=== PATIENT | male | born 1990 | race Hispanic/Latino ===

== ENCOUNTER 2022-06-24 18:37 | Emergency (ER) | payer OTHER, SELFPAY ==
--- OUTSIDE RECORDS SUMMARY | 2022-06-24 18:41 | XMS REPORT | Continuity of Care Document ---
:1990 Author Organization [facility] t Address [address] [place] [address] Care Team Providers Name Role Phone AMBREEN_STELLAA Attending Clinician Unavailable [email or web address] Attending Clinician Unavailable ERUM_STELLAA Admitting Clinician Unavailable [email or web address]_beti Admitting Clinician Unavailable Payers Payer Name Policy Type Policy Number Effective Date Expiration Date S ource Problems Condition Condition Condition Status Onset Resolution Last Treating Co mments Source Name Details Category Date Date Treatment Clinician Date Asthma Asthma Problem Active [place] [facility]12 [facility] 00:[facility]: [facility] Allergies, Adverse Reactions, Alerts This patient has no known allergies or adverse reactions. Social History Smoking Status Start Date Stop Date Source Smoker, Current Status Unknown [place] [facility] Medications This patient has no known medications. Immunizations Ordered Immunization Filled Immunization Date Status Commen ts Source Name Name Tdap Tdap 2016-06-18 Completed [facility] Procedures Procedure Date / Time Performed Performing Clinician Sourc e Appendectomy [facility] Plan of Care Planned Activity Planned Date Details Comments Source Diagnostic Test 2020-01-28 COVID-19 RNA [facility] Pending 00:00:00 (SARS-CoV-2), QL, [facility] iron assorter-PCR, respiratory Outreac [facility] Program specimen [code = COVID-19 RNA (SARS-CoV-2), QL, iron assorter-PCR, respiratory specimen] Encounters Start End Encounter Admission Attending Care Care Encounter Source Date/Time Date/Time Type Type Clinicians Facility Department ID 2020-01-28 2020-01-28 Outpatient [facility] [id number] [place] 09:07:00 09:07:00 JAN [id number] [facility] 2020-01-28 2020-01-28 [facility] [place] - [id number] [place] 00:00:00 00:00:00 Saeed Pacheco MD: [id number] [facility] [place] [place] [id number] h , Ph. Program 2019-09-23 2019-09-23 Outpatient donavan ANDERSON MM [id number] [place] 11:36:00 11:36:00 [id number] Results This patient has no known results.
[2022-06-24] MEDS ORDERED: ONDANSETRON 4 MG (ODT) TAB ONE (19:45)
[2022-06-24 20:29] LABS: SARS-COV-2 RT PCR NEGATIVE (NEGATIVE)
--- NOTE | 2022-06-24 20:45 | ER ---
Nurse's Notes [facility] Name: Gabe Robison Jr Age: 32 yrs Sex: Male : 1990 Arrival Date: 06/24/2022 Time: 18:38 Bed IW1 Private MD: Diagnosis: Nausea Presentation: 06/24 19:38 Chief complaint: Patient states: I woke up with nausea and abdominal pain today. aa9 Coronavirus screen: Vaccine status: Patient reports being unvaccinated. Ebola Screen: No symptoms or risks identified at this time. Initial Sepsis Screen: Does the patient meet any 2 criteria? No. Patient's initial sepsis screen is negative. Does the patient have a suspected source of infection? No. Patient's initial sepsis screen is negative. Risk Assessment: Do you want to hurt yourself or someone else? Patient reports no desire to harm self or others. Onset of symptoms was June 24, 2022. 19:38 Method Of Arrival: Ambulatory aa9 19:38 Acuity: ESTELLE 4 aa9 Triage Assessment: 19:40 General: Appears in no apparent distress. comfortable, Behavior is calm, cooperative, aa9 appropriate for age. Pain: Denies pain. Neuro: Level of Consciousness is awake, alert, obeys commands, Oriented to person, place, time, situation. Cardiovascular: Patient's skin is warm and dry. Respiratory: Airway is patent Respiratory effort is even, unlabored. GI: Reports nausea. Historical: - Allergies: 19:39 No Known Allergies; aa9 - Home Meds: 19:39 None [Active]; aa9 - PMHx: 19:39 Asthma; aa9 - Immunization history:: Client reports having NOT received the Covid vaccine. - Social history:: Smoking status: Reported history of juuling and/or vaping. Screenin:11 [facility] ED Fall Risk Assessment (Adult) History of falling in the last 3 months, aa9 including since admission No falls in past 3 months (0 pts) Confusion or Disorientation No (0 pts) Intoxicated or Sedated No (0 pts) Impaired Gait No (0 pts) Mobility Assist Device Used No (0 pt) Altered Elimination No (0 pt) Score/Fall Risk Level 0 - 2 = Low Risk. Abuse screen: Denies threats or abuse. Denies injuries from another. Nutritional screening: No deficits noted. Tuberculosis screening: No symptoms or risk factors identified. Vital Signs: 19:38 BP 126 / 84; Pulse 77; Resp 19 S; Temp 98(O); Pulse Ox 100% on R/A; Weight 94.35 kg aa9 (R); Height 5 ft. 7 in. (170.18 cm) (R); Pain 0/10; 19:38 Body Mass Index 32.58 (94.35 kg, 170.18 cm) aa9 ED Course: 18:38 Patient arrived in ED. as 18:50 Nell Brown FNP-C is [facility]. kb 18:50 Franko Chu MD is Attending Physician. kb 19:39 Triage completed. aa9 19:40 Arm band placed on. aa9 19:44 Elisa Melgar MD is Attending Physician. kb 21:11 Patient has correct armband on for positive identification. aa9 21:11 Patient did not have IV access during this emergency room visit. aa9 21:11 No provider procedures requiring assistance completed. aa9 Administered Medications: 19:43 Drug: Zofran (Ondansetron) 4 mg Route: PO; aa9 20:21 Follow up: Response: No adverse reaction aa9 Medication: 21:11 VIS not applicable for this client. aa9 Outcome: 20:45 Discharge ordered by . kb 21:11 Discharged to home ambulatory. aa9 21:11 Condition: stable 21:11 Discharge instructions given to patient, Instructed on discharge instructions, follow up and referral plans. Demonstrated understanding of instructions, follow-up care. 21:11 Patient left the ED. aa9 Signatures: Nell Brown FNP-C FNP-Janell Leonardo Aylin, RN RN aa9
--- NOTE | 2022-06-24 20:45 | EDPHYS ---
Physician Documentation [facility] Name: Gabe Robison Jr Age: 32 yrs Sex: Male : 1990 Arrival Date: 06/24/2022 Time: 18:38 Bed IW1 Private MD: ED Physician Elisa Melgar HPI: 06/24 20:57 This 32 yrs old Male presents to ER via Ambulatory with complaints of Nausea, kb Dizziness. 20:57 The patient presents to the emergency department with nausea. Onset: The kb symptoms/episode began/occurred 1 hour(s) ago. Possible causes: unknown. The symptoms are aggravated by nothing. The symptoms are alleviated by nothing. Associated signs and symptoms: Pertinent positives: nausea, fatigue, malaise. Severity of symptoms: At their worst the symptoms were mild in the emergency department the symptoms are unchanged. The patient has not experienced similar symptoms in the past. The patient has not recently seen a physician. 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 "I was on my way to work and didn't think I could work like this so my boss told me to come in.". Historical: - Allergies: 19:39 No Known Allergies; aa9 - Home Meds: 19:39 None [Active]; aa9 - PMHx: 19:39 Asthma; aa9 - Immunization history:: Client reports having NOT received the Covid vaccine. - Social history:: Smoking status: Reported history of juuling and/or vaping. ROS: 20:59 Respiratory: Negative for shortness of breath, cough, wheezing, and pleuritic chest kb pain. 20:59 Constitutional: Positive for fatigue, malaise. 20:59 Abdomen/GI: Positive for nausea, Negative for abdominal pain, vomiting, diarrhea. 20:59 All other systems are negative. Exam: 20:59 Constitutional: This is a well developed, well nourished patient who is awake, alert, kb and in no acute distress. Head/Face: Normocephalic, atraumatic. ENT: Moist Mucous membranes Cardiovascular: Regular rate and rhythm with a normal S1 and S2. No gallops, murmurs, or rubs. No pulse deficits. Respiratory: Respirations even and unlabored. No increased work of breathing. Talking in full sentences Abdomen/GI: Soft, non-tender. No distention Skin: Warm, dry with normal turgor. Normal color. MS/ Extremity: Pulses equal, no cyanosis. Neurovascular intact. Full, normal range of motion. Neuro: Awake and alert, GCS 15, oriented to person, place, time, and situation. Moves all extremities. Normal gait. Vital Signs: 19:38 BP 126 / 84; Pulse 77; Resp 19 S; Temp 98(O); Pulse Ox 100% on R/A; Weight 94.35 kg aa9 (R); Height 5 ft. 7 in. (170.18 cm) (R); Pain 0/10; 19:38 Body Mass Index 32.58 (94.35 kg, 170.18 cm) aa9 MDM: 19:39 Patient medically screened. kb 20:57 Data reviewed: vital signs, nurses notes. Data interpreted: Pulse oximetry: on room air kb is 100 %. Interpretation: normal. 21:00 Differential diagnosis: viral gastroenteritis, gastroenteritis, viral syndrome. kb Counseling: I had a detailed discussion with the patient and/or guardian regarding: the historical points, exam findings, and any diagnostic results supporting the discharge/admit diagnosis, lab results, the need for outpatient follow up, a family practitioner, to return to the emergency department if symptoms worsen or persist or if there are any questions or concerns that arise at home. ED course: Diagnostic test considered but not performed: Considered CBC, CMP, lipase and abdominal ultrasound but patient has no pain, fever. Decided not to do further studies using shared decision making History obtained from: Patient. 06/24 19:39 Order name: COVID-19/FLU A+B; Complete Time: 20:35 kb Administered Medications: 19:43 Drug: Zofran (Ondansetron) 4 mg Route: PO; aa9 20:21 Follow up: Response: No adverse reaction aa9 Disposition Summary: 06/24/22 20:45 Discharge Ordered Location: Home Condition: Stable kb Diagnosis - Nausea kb Followup: kb - With: Private Physician - When: 2 - 3 days - Reason: Recheck today's complaints, Continuance of care, Re-evaluation by your physician Followup: kb - With: Emergency Department - When: As needed - Reason: Worsening of condition Discharge Instructions: - Discharge Summary Sheet kb - Nausea, Adult, [id number] kb Forms: - Medication Reconciliation Form kb - Thank You Letter kb - Antibiotic Education kb - Work release form kb - Prescription Opioid Use kb Signatures: Dispatcher [employer] Nell Velasquez, Yajaira Seaman, RN RN aa9
[2022-06-24 22:01] VITALS: BP 126/84; TEMP 98; O2SAT 100
== END 2022-06-24 21:11 | disposition home or self-care (01) ==
LOC: ER 18:37
DX: R11.0 Nausea (principal); Z20.822 Contact with and (suspected) exposure to COVID-19
CPT/HCPCS: 0240U; 99283; Q0162

== ENCOUNTER 2022-07-05 19:08 | Emergency (ER) | payer OTHER ==
--- OUTSIDE RECORDS SUMMARY | 2022-07-05 19:11 | XMS REPORT | Continuity of Care Document ---
:1990 Author Organization [facility] t Address [address] [place] [address] Care Team Providers Name Role Phone LAKHWINDERREEN_ALISON Attending Clinician Unavailable [email or web address] Attending Clinician Unavailable LAKHWINDERREEN_STELLAA Admitting Clinician Unavailable charlee_beti Admitting Clinician Unavailable Payers Payer Name Policy Type Policy Number Effective Date Expiration Date S ource Problems Condition Condition Condition Status Onset Resolution Last Treating Co mments Source Name Details Category Date Date Treatment Clinician Date Asthma Asthma Problem Active [place] 8-12 da 00:[facility]: [facility] Allergies, Adverse Reactions, Alerts This patient has no known allergies or adverse reactions. Social History Smoking Status Start Date Stop Date Source Smoker, Current Status Unknown [place] [facility] Medications This patient has no known medications. Immunizations Ordered Immunization Filled Immunization Date Status Commen ts Source Name Name Tdap Tdap 2016-06-18 Completed [facility] 00:00:00 [facility] Procedures Procedure Date / Time Performed Performing Clinician [facility]our[facility] e [facility] Plan of Care Planned Activity Planned Date Details Comments Source Diagnostic Test 2020-01-28 COVID-19 RNA [facility] Pending 00:00:00 (SARS-CoV-2), QL, [facility] accounts receivable associate-PCR, respiratory Outreac [facility] Program specimen [code = COVID-19 RNA (SARS-CoV-2), QL, accounts receivable associate-PCR, respiratory specimen] Encounters Start End Encounter Admission Attending Care Care Encounter Source Date/Time Date/Time Type Type Clinicians Facility Department ID 2020-01-28 2020-01-28 Outpatient [facility] [id number] [place] 09:07:00 09:07:00 JAN [id number] [facility] 2020-01-28 2020-01-28 [place] - [id number] [place] 00:00:00 00:00:00 Saeed Pacheco MD: [address] [facility], [place], [place] [id number] h , Ph. Program 2019-09-23 2019-09-23 Outpatient donavan ANDERSON MM [id number] [place] 11:36:00 11:36:00 0407 [facility] Results This patient has no known results.
[2022-07-05] MEDS ORDERED: NA CHLORIDE 0.9% 1,000 ML ONE (20:18)
[2022-07-05] MEDS ORDERED: FAMOTIDINE 20 MG/2 ML VIAL IV ONE (20:19)
[2022-07-05 20:25] LABS: Absolute Lymphocytes (CBC) 1.6 K/uL (0.7-4.9); Hematocrit 44.2 % (39.6-49.0); Lymphocytes % 9.8 % (15.3-44.8); MCV 90.6 fL (80-100); MPV 7.8 fL (7.6-11.3); RBC Red Blood Cell Count 4.88 M/uL (4.33-5.43)
[2022-07-05 20:38] LABS: Albumin 3.5 g/dL (3.4-5.0); Bilirubin Total 0.4 mg/dL (0.2-1.0); Protein, Total 7.7 g/dL (6.4-8.2)
--- NOTE | 2022-07-05 21:32 | RAD REPORT ---
EXAM DESCRIPTION: CT - Abdomen Pelvis W Contrast - 07/05/2022 9:18 pm CLINICAL HISTORY: Abdominal pain COMPARISON: none. TECHNIQUE: Computed axial tomography of the abdomen pelvis was obtained. 100 cc Isovue-300 was admin istered intravenously. Oral contrast was not requested which limits evaluation of bowel and appendix All CT scans are performed using dose optimization technique as appropriate and may include automated exposure control or mA/KV adjustment according to patient size. FINDINGS: Fatty liver Spleen, pancreas, adrenal and kidneys appear unremarkable. There is no evidence of diverticulitis. Small umbilical hernia IMPRESSION: Fatty liver
[2022-07-05] MEDS ORDERED: LIDOCAINE VISCOUS 2% SOLN 15 ML UDC ONE (22:26)
[2022-07-05] MEDS ORDERED: HYDROCODONE/APAP 5/325 MG TAB ONE (22:26)
[2022-07-05] MEDS ORDERED: MAGNES/ALUMIN/SIMET 30ML UCUP ONE (22:27)
--- NOTE | 2022-07-05 23:18 | ER ---
Nurse's Notes [facility] Name: Gabe Robison Jr Age: 32 yrs Sex: Male : 1990 Arrival Date: 07/05/2022 Time: 19:12 Bed 16 Private MD: Diagnosis: Streptococcal pharyngitis;Vomiting Presentation: 07/05 19:32 Chief complaint: Patient states: I was at work today and I started having a headache kd3 and I threw up a few times. My throat has been hurting and i was feeling a bit dizzy. My symptoms started around 9 or 10 this morning. Coronavirus screen: Vaccine status: Patient reports being unvaccinated. Ebola Screen: No symptoms or risks identified at this time. Risk Assessment: Do you want to hurt yourself or someone else? Patient reports no desire to harm self or others. Onset of symptoms was July 05, 2022. 19:32 Method Of Arrival: Ambulatory kd3 19:32 Acuity: ESTELLE 4 kd3 19:37 Initial Sepsis Screen: Does the patient meet any 2 criteria? No. Patient's initial kd3 sepsis screen is negative. Does the patient have a suspected source of infection? No. Patient's initial sepsis screen is negative. Triage Assessment: 19:33 Headache History: Denies prior headaches. General: Appears in no apparent distress. kd3 Behavior is calm, cooperative. Pain: Complains of pain in head Pain currently is 7 out of 10 on a pain scale. Pain began suddenly, Also complains of nausea. Neuro: Level of Consciousness is awake, alert, obeys commands, Oriented to person, place, time, situation. Historical: - PMHx: 19:33 Asthma; kd3 - Immunization history:: Adult Immunizations up to date. - Social history:: Smoking status: Reported history of juuling and/or vaping. Screenin:45 [facility] ED Fall Risk Assessment (Adult) History of falling in the last 3 months, jb4 including since admission No falls in past 3 months (0 pts) Confusion or Disorientation No (0 pts) Intoxicated or Sedated No (0 pts) Impaired Gait No (0 pts) Mobility Assist Device Used No (0 pt) Altered Elimination No (0 pt) Score/Fall Risk Level 0 - 2 = Low Risk. Abuse screen: Denies threats or abuse. Nutritional screening: No deficits noted. Tuberculosis screening: No symptoms or risk factors identified. Assessment: 19:45 General: Appears in no apparent distress. comfortable, Behavior is calm, cooperative, jb4 appropriate for age. Pain: Complains of pain in headache Pain does not radiate. Pain currently is 7 out of 10 on a pain scale. Quality of pain is described as aching. Neuro: Level of Consciousness is awake, alert, obeys commands, Oriented to person, place, time, situation. Cardiovascular: Patient's skin is warm and dry. Respiratory: Airway is patent Respiratory effort is even, unlabored, Respiratory pattern is regular, symmetrical. GI: No signs and/or symptoms were reported involving the gastrointestinal system. : No signs and/or symptoms were reported regarding the genitourinary system. EENT: No signs and/or symptoms were reported regarding the EENT system. Derm: Skin is intact, Skin is pink, warm \T\ dry. Musculoskeletal: Circulation, motion, and sensation intact. Range of motion:. 21:00 Reassessment: Patient appears in no apparent distress at this time. Patient and/or jb4 family updated on plan of care and expected duration. Pain level reassessed. Patient is alert, oriented x 3, equal unlabored respirations, skin warm/dry/pink. 22:00 Reassessment: Patient appears in no apparent distress at this time. Patient and/or jb4 family updated on plan of care and expected duration. Pain level reassessed. Patient is alert, oriented x 3, equal unlabored respirations, skin warm/dry/pink. 23:00 Reassessment: Patient appears in no apparent distress at this time. Patient and/or jb4 family updated on plan of care and expected duration. Pain level reassessed. Patient is alert, oriented x 3, equal unlabored respirations, skin warm/dry/pink. 07/06 00:00 Reassessment: Patient appears in no apparent distress at this time. Patient and/or jb4 family updated on plan of care and expected duration. Pain level reassessed. Patient is alert, oriented x 3, equal unlabored respirations, skin warm/dry/pink. Vital Signs: 07/05 19:37 BP 115 / 81; Pulse 98; Resp 19; Temp 98.1(TE); Pulse Ox 100% ; Weight 95.25 kg; Height kd3 5 ft. 7 in. (170.18 cm); Pain 7/10; 20:45 BP 124 / 82; Pulse 88; Resp 16; Pulse Ox 100% on R/A; jb4 21:30 BP 120 / 80; Pulse 94; Resp 16; Pulse Ox 100% on R/A; jb4 22:30 BP 122 / 82; Pulse 94; Resp 18; Pulse Ox 100% on R/A; jb4 23:00 BP 118 / 74; Pulse 90; Resp 16; Pulse Ox 99% ; jb4 19:37 Body Mass Index 32.89 (95.25 kg, 170.18 cm) kd3 ED Course: 19:12 Patient arrived in ED. jj6 19:33 Triage completed. kd3 19:33 Arm band placed on. kd3 19:45 Patient has correct armband on for positive identification. Bed in low position. Call jb4 light in reach. Side rails up X 1. Client placed on continuous cardiac and pulse oximetry monitoring. NIBP monitoring applied. 19:50 Octavia Wright FNP-C is [facility]. snw 19:50 Zay Evans MD is Attending Physician. snw 20:00 Facundo Burnett RN is Primary Nurse. jb4 20:10 Inserted saline lock: 20 gauge in right antecubital area, using aseptic technique. jb4 Blood collected. 20:15 CBC with Diff Sent. jb4 20:15 CMP Sent. jb4 20:15 Lipase Sent. jb4 21:20 CT Abd/Pelvis - IV Contrast Only In Process Unspecified. EDMS 07/06 00:06 No provider procedures requiring assistance completed. IV discontinued, intact, jb4 bleeding controlled, No redness/swelling at site. Pressure dressing applied. Administered Medications: 07/05 20:28 Drug: NS 0.9% 1000 ml Route: IV; Rate: 1 bolus; Site: left antecubital; jb4 21:30 Follow up: Response: No adverse reaction; IV Status: Completed infusion; IV Intake: jb4 1000ml 20:28 Drug: Pepcid (famotidine) 20 mg Route: IVP; Site: left antecubital; jb4 21:00 Follow up: Response: No adverse reaction; Marked relief of symptoms jb4 23:50 Drug: Rocephin (cefTRIAXone) 1 grams Route: IV; Rate: calculated rate; Site: left jb4 antecubital; 07/06 00:03 Follow up: Response: No adverse reaction; IV Status: Completed infusion jb4 07/05 23:50 Drug: Decadron - Dexamethasone 10 mg Route: IVP; Site: left antecubital; jb4 07/06 00:03 Follow up: Response: No adverse reaction jb4 Intake: 07/05 21:30 IV: 1000ml; Total: 1000ml. jb4 Outcome: 23:18 Discharge ordered by MD. gonzales 07/06 00:06 Discharged to home ambulatory, with family. jb4 Condition: stable Discharge instructions given to patient, Instructed on discharge instructions, follow up and referral plans. medication usage, Demonstrated understanding of instructions, follow-up care, medications, Prescriptions given X 1. 00:06 Patient left the ED. jb4 Signatures: Dispatcher [employer] EDMS Octavia Wright, TYPEWRITER ASSEMBLER-C TYPEWRITER ASSEMBLER-Csnw Facundo Burnett, RN RN jb4 Chary Pinzon6 Elizabeth Sweeney RN RN kd3
--- NOTE | 2022-07-05 23:18 | EDPHYS ---
Physician Documentation [facility] Name: Gabe Robison Jr Age: 32 yrs Sex: Male : 1990 Arrival Date: 07/05/2022 Time: 19:12 Bed 16 Private MD: ED Physician Zay Evans HPI: 07/05 20:11 This 32 yrs old Male presents to ER via Ambulatory with complaints of snw Headache, Dizziness, Nausea/Vomiting. 20:11 The patient presents to the emergency department with nausea, vomiting. Onset: The snw symptoms/episode began/occurred acutely. Possible causes: unknown. The symptoms are aggravated by food . Associated signs and symptoms: Pertinent positives: nausea, vomiting, dizziness. Severity of symptoms: At their worst the symptoms were moderate. The patient has experienced similar episodes in the past. in this ED earlier this month with same s/s. Historical: - PMHx: 19:33 Asthma; kd3 - Immunization history:: Adult Immunizations up to date. - Social history:: Smoking status: Reported history of juuling and/or vaping. ROS: 20:07 Constitutional: Negative for fever, chills, and weight loss, Eyes: Negative for injury, snw pain, redness, and discharge, ENT: Negative for injury, pain, and discharge, Neck: Negative for injury, pain, and swelling, Cardiovascular: Negative for chest pain, palpitations, and edema, Respiratory: Negative for shortness of breath, cough, wheezing, and pleuritic chest pain, Back: Negative for injury and pain, : Negative for injury, bleeding, discharge, and swelling, MS/Extremity: Negative for injury and deformity, Skin: Negative for injury, rash, and discoloration. 20:07 Abdomen/GI: Positive for nausea and vomiting, Negative for abdominal pain. 20:07 Neuro: Positive for headache. Exam: 20:00 Constitutional: This is a well developed, well nourished patient who is awake, alert, snw and in no acute distress. Head/Face: Normocephalic, atraumatic. Eyes: Pupils equal round and reactive to light, extra-ocular motions intact. Lids and lashes normal. Conjunctiva and sclera are non-icteric and not injected. Cornea within normal limits. Periorbital areas with no swelling, redness, or edema. ENT: Nares patent. No nasal discharge, no septal abnormalities noted. Tympanic membranes are normal and external auditory canals are clear. Oropharynx with no redness, swelling, or masses, exudates, or evidence of obstruction, uvula midline. Mucous membranes moist. Neck: Trachea midline, no thyromegaly or masses palpated, and no cervical lymphadenopathy. Supple, full range of motion without nuchal rigidity, or vertebral point tenderness. No Meningismus. Chest/axilla: Normal chest wall appearance and motion. Nontender with no deformity. No lesions are appreciated. 20:00 Respiratory: Lungs have equal breath sounds bilaterally, clear to auscultation and percussion. No rales, rhonchi or wheezes noted. No increased work of breathing, no retractions or nasal flaring. Back: No spinal tenderness. No costovertebral tenderness. Full range of motion. Skin: Warm, dry with normal turgor. Normal color with no rashes, no lesions, and no evidence of cellulitis. MS/ Extremity: Pulses equal, no cyanosis. Neurovascular intact. Full, normal range of motion. Neuro: Awake and alert, GCS 15, oriented to person, place, time, and situation. Cranial nerves II-XII grossly intact. Motor strength 5/5 in all extremities. Sensory grossly intact. Cerebellar exam normal. Normal gait. Psych: Awake, alert, with orientation to person, place and time. Behavior, mood, and affect are within normal limits. 20:00 Cardiovascular: Rate: tachycardic, Rhythm: regular, Pulses: no pulse deficits are appreciated. 20:00 Abdomen/GI: Inspection: abdomen appears normal, Bowel sounds: normal, in all quadrants, Palpation: abdomen is soft and non-tender, in all quadrants. Vital Signs: 19:37 BP 115 / 81; Pulse 98; Resp 19; Temp 98.1(TE); Pulse Ox 100% ; Weight 95.25 kg; Height kd3 5 ft. 7 in. (170.18 cm); Pain 7/10; 20:45 BP 124 / 82; Pulse 88; Resp 16; Pulse Ox 100% on R/A; jb4 21:30 BP 120 / 80; Pulse 94; Resp 16; Pulse Ox 100% on R/A; jb4 22:30 BP 122 / 82; Pulse 94; Resp 18; Pulse Ox 100% on R/A; jb4 23:00 BP 118 / 74; Pulse 90; Resp 16; Pulse Ox 99% ; jb4 19:37 Body Mass Index 32.89 (95.25 kg, 170.18 cm) kd3 MDM: 19:52 Patient medically screened. snw 23:19 Differential diagnosis: Nonspecific abd pain, appendicitis, strep. Data reviewed: vital snw signs, nurses notes, lab test result(s), radiologic studies. I considered the following discharge prescriptions or medication management in the emergency department Medications were administered in the Emergency Department. See MAR. Counseling: I had a detailed discussion with the patient and/or guardian regarding: the historical points, exam findings, and any diagnostic results supporting the discharge/admit diagnosis, the presence of at least one elevated blood pressure reading (>120/80) during this emergency department visit, lab results, radiology results, the need for outpatient follow up, to return to the emergency department if symptoms worsen or persist or if there are any questions or concerns that arise at home. Special discussion: Based on the history and exam findings, there is no indication for further emergent testing or inpatient evaluation. I discussed with the patient/guardian the need to see the primary care provider for further evaluation of the symptoms. 07/05 19:56 Order name: CBC with Diff; Complete Time: 20:41 snw 07/05 19:56 Order name: CMP; Complete Time: 20:41 snw 07/05 19:56 Order name: Lipase; Complete Time: 20:41 snw 07/05 20:42 Order name: CT Abd/Pelvis - IV Contrast Only; Complete Time: 21:37 snw 07/05 21:37 Order name: Strep; Complete Time: 23:17 snw 07/05 19:56 Order name: IV Saline Lock; Complete Time: 20:15 snw 07/05 19:56 Order name: Labs collected and sent; Complete Time: 20:15 snw Administered Medications: 20:28 Drug: NS 0.9% 1000 ml Route: IV; Rate: 1 bolus; Site: left antecubital; jb4 21:30 Follow up: Response: No adverse reaction; IV Status: Completed infusion; IV Intake: jb4 1000ml 20:28 Drug: Pepcid (famotidine) 20 mg Route: IVP; Site: left antecubital; jb4 21:00 Follow up: Response: No adverse reaction; Marked relief of symptoms [facility] 23:50 Drug: Rocephin (cefTRIAXone) 1 grams Route: IV; Rate: calculated rate; Site: left [facility] antecubital; 07/06 00:03 Follow up: Response: No adverse reaction; IV Status: Completed infusion 4 07/05 23:50 Drug: Decadron - Dexamethasone 10 mg Route: IVP; Site: left antecubital; [facility] 07/06 00:03 Follow up: Response: No adverse reaction jb Disposition Summary: 07/05/22 23:18 Discharge Ordered Location: Home snw Condition: Stable snw Diagnosis - Streptococcal pharyngitis snw - Vomiting snw Followup: snw - With: Emergency Department - When: As needed - Reason: Worsening of condition Followup: snw - With: Private Physician - When: 5 - 6 days - Reason: Recheck today's complaints, Continuance of care, Re-evaluation by your physician Discharge Instructions: - Discharge Summary Sheet snw - Dehydration, Adult snw - Strep Throat, Adult snw - Rehydration, Adult snw Forms: - Medication Reconciliation Form snw - Thank You Letter snw - Antibiotic Education snw - Prescription Opioid Use snw - Work release form snw Prescriptions: - Zithromax 500 mg Oral Tablet - take 1 tablet by ORAL route once daily for 5 days; 5 tablet; Refills: 0, snw Product Selection Permitted Signatures: Dispatcher [employer] Octavia Hu FNP-C [employer] Facundo Burnett, RN RN jb4 Elizabeth Sweeney, RN RN kd3
[2022-07-05] MEDS ORDERED: dexAMETHasone 10 MG/ML VIAL ONE (23:40)
[2022-07-05] MEDS ORDERED: CEFTRIAXONE 1000 MG/VIAL ONE (23:40)
[2022-07-06 01:13] VITALS: TEMP 98.1
[2022-07-06 01:17] VITALS: BP 118/74; O2SAT 99
== END 2022-07-06 00:06 | disposition home or self-care (01) ==
LOC: ER 19:08
DX: J02.0 Streptococcal pharyngitis (principal); R11.10 Vomiting, unspecified; F17.290 Nicotine dependence, other tobacco product, uncomplicated
CPT/HCPCS: 85025; 36415; 87081; 83690; 80053; 74177; Q9967; J1100; J7030; 96361; 96374; 96375; 99284